=== PATIENT | female | born 1990 | race African-American/Black ===

== ENCOUNTER 2020-08-04 18:43 | Emergency (ER) | payer OTHER ==
[~2020-08-04] VITALS: Ht 157.5 cm; Wt 67.6 kg
[~2020-08-04 18:43] MED LIST: ACYCLOVIR 400400 MG; CLARITIN10 MG PO; NOHOMEMEDICATIONS; NORCO 5-325 TA1 EACH PO; TRINATE TABLET1 TAB PO; VITAFOL-OB+DHA1 EACH PO
[2020-08-04] MEDS ORDERED: NORCO5 PO (19:31)
[2020-08-04 19:35] VITALS: BP 130/90
== END 2020-08-04 19:56 | disposition home or self-care (01) ==
LOC: ER 18:43
DX: S62.392A Other fracture of third metacarpal bone, right hand, initial encounter for closed fracture (principal); Z79.899 Other long term (current) drug therapy; W23.0XXA Caught, crushed, jammed, or pinched between moving objects, initial encounter; Y93.89 Activity, other specified; Y92.89 Other specified places as the place of occurrence of the external cause; Y99.9 Unspecified external cause status

== ENCOUNTER → 2021-05-28 | Emergency (ER) | payer OTHER ==
[~2021-05-28] VITALS: Ht 157.5 cm; Wt 80.3 kg
[~2021-05-28] MED LIST changes: +NORCO5 PO
[2021-05-28 21:19] VITALS: BP 124/90
== END ==
LOC: ER 21:17
DX: S62.644A Nondisplaced fracture of proximal phalanx of right ring finger, initial encounter for closed fracture (principal); X58.XXXA Exposure to other specified factors, initial encounter; Y93.89 Activity, other specified; Y92.89 Other specified places as the place of occurrence of the external cause; Y99.8 Other external cause status